=== PATIENT | female | born 1960 | race African-American/Black ===

== ENCOUNTER 2020-07-14 14:53 | Observation (INO) ==
[2020-07-14] MEDS ORDERED: Pantoprazole 40 MG VIAL IVP ONE (16:07)
[2020-07-14] MEDS ORDERED: Isovue-370 500 ML BOTTLE IVP ONE (16:08)
[2020-07-14] MEDS ORDERED: 0.9 % Sodium Chloride 1,000 ML IVC SCH ×3 (16:15→19:46)
[2020-07-14 17:17] LABS: Hematocrit 32.8 % (35.3-44.9); Hemoglobin 10.9 g/dL (11.5-15.4); Immature Granulocytes % 0.3 % (0-4); Lymphocytes # 0.9 K/mcL (0.6-4.6); Mean Corpuscular HGB Conc 33.2 g/dL (31.6-35.5); Mean Corpuscular Hemoglobin 27.9 pg (28.0-33.3); Mean Corpuscular Volume 84.1 fL (83.0-100.0); Mean Platelet Volume 11.1 fL (9.4-12.4); Monocytes # 0.2 K/mcL (0.0-1.3); Monocytes % 3.3 %; Neutrophils # 5.5 K/mcL (1.6-8.9); Platelet Count 334 K/mcL (140-400); Red Cell Distribution Width 12.5 % (11.5-14.5); Segmented Neutrophils % 82.4 %; White Blood Count 6.7 K/mcL (4.3-11.1)
[2020-07-14 17:18] LABS: INR 1.1
[2020-07-14 17:20] LABS: Activated Partial Thrombo Time 30.6 Seconds (26.0-36.0)
[2020-07-14 17:29] LABS: Alanine Aminotransferase 9 Units/L (7-52); Albumin 3.3 g/dL (3.5-5.7); Albumin/Globulin Ratio 0.8 (1.1-2.2); Alkaline Phosphatase 53 Units/L (34-104); Aspartate Amino Transferase 10 Units/L (13-39); BUN/Creatinine Ratio 19 (6-26); Bilirubin,Total 0.2 mg/dL (0.3-1.0); Blood Urea Nitrogen 30 mg/dL (6-20); Calcium 8.9 mg/dL (8.6-10.3); Carbon Dioxide 26 mEq/L (23-29); Chloride 105 mEq/L (98-107); Globulin 4.2 g/dL (2.4-3.5); Glucose 406 mg/dL (70-105); Osmolality,Calculated 315 (280-300); Potassium 4.9 mEq/L (3.5-5.1); Sodium 141 mEq/L (136-145); Total Protein 7.5 g/dL (6.4-8.9); Troponin I < 0.03 ng/mL (< 0.04); eGFR For African Americans 42 (> 60); eGFR For Non-African Americans 34 (> 60)
[2020-07-14] MEDS ORDERED: Insulin Regular, Human 100 UNIT/ML SUBQ ONE (17:47)
[2020-07-14] MEDS ORDERED: Ondansetron 4 MG/2 ML VIAL IVP PRN (19:46)
[2020-07-14] MEDS ORDERED: Naloxone 0.4 MG/ML INJ IVP PRN (19:46)
[2020-07-14] MEDS ORDERED: Insulin DETEMIR 100 UNIT/ML per UNIT SUBQ ONE (21:00)
[2020-07-14] MEDS ORDERED: dexAMETHasone 4 MG TABLET PO SCH (22:30)
[2020-07-14] MEDS: carvediloL 25 MG TABLET PO SCH (23:24)
[2020-07-14] MEDS: Cefdinir 300 MG CAPSULE PO SCH (23:25)
[2020-07-15 06:28] LABS: Hematocrit 29.8 % (35.3-44.9); Hemoglobin 9.9 g/dL (11.5-15.4); Immature Granulocytes % 0.4 % (0-4); Lymphocytes # 1.1 K/mcL (0.6-4.6); Lymphocytes % 14.3 %; Mean Corpuscular HGB Conc 33.2 g/dL (31.6-35.5); Mean Corpuscular Hemoglobin 27.9 pg (28.0-33.3); Mean Corpuscular Volume 83.9 fL (83.0-100.0); Monocytes # 0.3 K/mcL (0.0-1.3); Monocytes % 3.4 %; Neutrophils # 6.2 K/mcL (1.6-8.9); Platelet Count 319 K/mcL (140-400); Red Blood Count 3.55 M/mcL (3.82-4.97); Red Cell Distribution Width 12.4 % (11.5-14.5); Segmented Neutrophils % 81.9 %; White Blood Count 7.5 K/mcL (4.3-11.1)
[2020-07-15 06:44] LABS: Albumin 3.1 g/dL (3.5-5.7); Albumin/Globulin Ratio 0.8 (1.1-2.2); Bilirubin,Total 0.3 mg/dL (0.3-1.0); Calcium 8.6 mg/dL (8.6-10.3); Globulin 3.8 g/dL (2.4-3.5); Potassium 4.3 mEq/L (3.5-5.1); Total Protein 6.9 g/dL (6.4-8.9)
[2020-07-15] MEDS ORDERED: Dextrose Gel 15 GM/37.5 ML TUBE PO PRN ×2 (08:46)
[2020-07-15] MEDS ORDERED: D5% in Water 1,000 ML IVC PRN (08:46)
[2020-07-15] MEDS ORDERED: *HR* Dextrose 50 % in Water (Vial) 50 ML VIAL IVP PRN (08:46)
[2020-07-15] MEDS ORDERED: Torsemide 20 MG TABLET PO SCH (09:00)
[2020-07-15] MEDS: Budesonide/Formoterol 160/4.5 1 PUFF INH IH SCH ×2 (10:24→22:33)
[2020-07-15] MEDS: amLODIPine 5 MG TABLET PO SCH (10:45)
[2020-07-15] MEDS: Ascorbic Acid 500 MG TABLET PO SCH (10:45)
[2020-07-15] MEDS: carvediloL 25 MG TABLET PO SCH ×2 (10:45→22:31)
[2020-07-15] MEDS: Cholecalciferol (D-3) 1,000 UNIT (25MCG) TABLET PO SCH (10:45)
[2020-07-15] MEDS: Cefdinir 300 MG CAPSULE PO SCH ×2 (10:45→22:31)
[2020-07-15] MEDS: Insulin LISPRO 300 UNITS/3 ML VIAL SUBQ SCH ×6 (10:49→17:27)
[2020-07-15] MEDS: Insulin DETEMIR 100 UNIT/ML X5UNITS SUBQ SCH ×2 (10:49→22:30)
[2020-07-15 18:10] LABS: Estimated Average Glucose 192 mg/dl; Hemoglobin A1C 8.3 %
[2020-07-15] MEDS ORDERED: Insulin LISPRO 300 UNITS/3 ML VIAL SUBQ SCH (21:00)
[2020-07-15] MEDS ORDERED: Latanoprost 2.5 ML BOTTLE BOTH EYES SCH (21:00)
[2020-07-16 06:22] LABS: Hematocrit 28.6 % (35.3-44.9); Hemoglobin 9.6 g/dL (11.5-15.4); Mean Corpuscular HGB Conc 33.6 g/dL (31.6-35.5); Mean Corpuscular Hemoglobin 28.2 pg (28.0-33.3); Mean Corpuscular Volume 83.9 fL (83.0-100.0); Mean Platelet Volume 10.7 fL (9.4-12.4); Platelet Count 328 K/mcL (140-400); Red Blood Count 3.41 M/mcL (3.82-4.97); Red Cell Distribution Width 12.6 % (11.5-14.5); White Blood Count 9.8 K/mcL (4.3-11.1)
[2020-07-16 06:44] LABS: Alanine Aminotransferase 9 Units/L (7-52); Albumin/Globulin Ratio 0.9 (1.1-2.2); Alkaline Phosphatase 41 Units/L (34-104); Aspartate Amino Transferase 10 Units/L (13-39); BUN/Creatinine Ratio 16 (6-26); Bilirubin,Total 0.2 mg/dL (0.3-1.0); Blood Urea Nitrogen 24 mg/dL (6-20); Calcium 8.4 mg/dL (8.6-10.3); Carbon Dioxide 26 mEq/L (23-29); Chloride 108 mEq/L (98-107); Globulin 3.5 g/dL (2.4-3.5); Glucose 122 mg/dL (70-105); Osmolality,Calculated 297 (280-300); Sodium 141 mEq/L (136-145); Total Protein 6.5 g/dL (6.4-8.9); eGFR For African Americans 44 (> 60); eGFR For Non-African Americans 37 (> 60)
[2020-07-16] MEDS: Insulin LISPRO 300 UNITS/3 ML VIAL SUBQ SCH ×4 (08:56→13:02)
[2020-07-16] MEDS: amLODIPine 5 MG TABLET PO SCH (08:59)
[2020-07-16] MEDS: carvediloL 25 MG TABLET PO SCH (08:59)
[2020-07-16] MEDS: Insulin DETEMIR 100 UNIT/ML X5UNITS SUBQ SCH (08:59)
[2020-07-16] MEDS: Cholecalciferol (D-3) 1,000 UNIT (25MCG) TABLET PO SCH (08:59)
[2020-07-16] MEDS: Ascorbic Acid 500 MG TABLET PO SCH (08:59)
[2020-07-16] MEDS ORDERED: dexAMETHasone 4 MG TABLET PO SCH (09:00)
[2020-07-16] MEDS: Cefdinir 300 MG CAPSULE PO SCH (09:00)
[2020-07-16] MEDS: Budesonide/Formoterol 160/4.5 1 PUFF INH IH SCH (09:28)
[2020-07-16 11:41] VITALS: BP 153/80
[2020-07-16 12:13] LABS: C-Reactive Protein < 5 mg/L (Less than 10)
[2020-07-16 12:30] LABS: Ferritin 516 ng/mL (10-120)
== END 2020-07-16 14:40 | DRG 377 ==
LOC: EMEROOGRE 14:53 → INTOOBSV 19:14 → INPGRE 19:14
PROVIDERS: ADMIT Family Medicine; ATTEND Family Medicine